=== PATIENT | male | born 1975 | race Caucasian/White ===

== ENCOUNTER 2016-11-26 22:37 | Emergency (ER) | payer BC, OTHER ==
[2016-11-26 22:52] VITALS: BP 133/78; PULSE 95; RESP 18; TEMP 98.1
--- NOTE | 2016-11-27 00:06 | ED ---
Extremity Problem HPI - General Chief complaint: Extremity Problem,Nontraumatic Stated complaint: left leg swelling Time Seen by Provider: 11/26/16 22:58 Source: patient, RN notes reviewed Mode of arrival: ambulatory Limitations: no limitations - History of Present Illness Initial comments: Patient is a 41-year-old male chief complaint of left lower calf swelling. Patient reports that he has occurred for the past 3 days. He states that his right Does not want. He denies any redness or heat from the calf. Patient states that he has no injury to cause the swelling. He states that he does stand on his feet all day at work. Patient denies any history of blood clots. Patient warts that he does have some pain behind the knee. He states that it initially started as pain management and he noticed a little red bump at the area. He reports that that has now resolved and he just has some swelling in the calf. Patient denies any recent fever, chills, shortness of breath, chest pain, back pain, abdominal pain, nausea vomiting, numbness or tingling, dysuria or hematuria, constipation or diarrhea, headaches or visual changes, or any other current symptoms - Related Data Home Medications Medication Instructions Recorded Confirmed Acetaminophen Tab [Tylenol Tab] 1,000 mg PO Q6HR PRN 11/26/16 11/26/16 Allergies Allergy/AdvReac Type Severity Reaction Status Date / Time latex Allergy Swelling Verified 11/26/16 23:39 Penicillins Allergy Rash/Hives Verified 11/26/16 23:39 Review of Systems ROS Statement: Those systems with pertinent positive or pertinent negative responses have been documented in the HPI. ROS Other: All systems not noted in ROS Statement are negative. Past Medical History Past Medical History: No Reported History History of Any Multi-Drug Resistant Organisms: None Reported Past Surgical History: Hernia Repair Past Psychological History: No Psychological Hx Reported Smoking Status: Current every day smoker Past Alcohol Use History: Rare Past Drug Use History: None Reported General Exam - General Exam Comments Initial Comments: Well-appearing 41-year-old male. He is not in any acute distress. Limitations: no limitations General appearance: alert, in no apparent distress Head exam: Present: atraumatic, normocephalic, normal inspection Eye exam: Present: normal appearance, PERRL, EOMI. Absent: scleral icterus, conjunctival injection, periorbital swelling ENT exam: Present: normal exam, mucous membranes moist Neck exam: Present: normal inspection. Absent: tenderness, meningismus, lymphadenopathy Respiratory exam: Present: normal lung sounds bilaterally. Absent: respiratory distress, wheezes, rales, rhonchi, stridor Cardiovascular Exam: Present: regular rate, normal rhythm, normal heart sounds. Absent: systolic murmur, diastolic murmur, rubs, gallop, clicks GI/Abdominal exam: Present: soft, normal bowel sounds. Absent: distended, tenderness, guarding, rebound, rigid Extremities exam: Present: normal inspection, full ROM, normal capillary refill. Absent: tenderness, pedal edema, joint swelling, calf tenderness Left Knee exam: Present: normal inspection, full ROM Lower Leg exam: Present: normal inspection, swelling (Patient is diffuse swelling over the calf. No evidence of erythema or heat from the leg.) Ankle exam: Present: normal inspection, full ROM Foot/Toe exam: Present: normal inspection, full ROM Neurovascular tendon exam: Present: no vascular compromise Gait: observed and normal Back exam: Present: normal inspection Neurological exam: Present: alert, oriented X3, CN II-XII intact Psychiatric exam: Present: normal affect, normal mood Skin exam: Present: warm, dry, intact, normal color. Absent: rash Course Vital Signs 11/26/16 22:49 Temperature 98.1 F Pulse Rate 95 Respiratory 18 Rate Blood Pressure 133/78 O2 Sat by Pulse 97 Oximetry Medical Decision Making - Medical Decision Making Patient is a 41-year-old male with 3 days of left lower calf swelling. Patient denies any erythema over the area. Denies any blood clots. He was significant swelling compared to the right leg ultrasound was obtained. Also x-ray of tib- fib was obtained. Ultrasound is negative for any acute process besides evidence of complex cystic process now the knee. I discussed with the patient as is a Lorenzo's cyst and that he needs to elevate his leg. Is likely that the Lorenzo's cyst ruptured and caused some dependent edema over the leg. Patient will be given Branden wrap and instructed to wear that as well as compression stockings whenever ambulating. I discussed return parameters and the patient needs to follow-up with orthopedic physician if he is still concerned. X-ray of tib-fib. It is negative for any acute process. Patient understands the treatment plan will comply. Return parameters were discussed. - Radiology Data Radiology results: report reviewed Complex masslike collection in the popliteal fossa raising possibility of a glycated popliteal cyst. Clinical correlation recommended. Disposition Clinical Impression: Popliteal cyst Disposition: HOME SELF-CARE Condition: Good Instructions: Bakers Cyst (ED) Additional Instructions: Patient denies to take Motrin Tylenol for pain. Follow-up with orthopedic symptoms continue to persist. Make sure the keep it elevated and apply the Branden wrap whenever working. Return to emergency department if any alarming signs or symptoms occur. Referrals: Christiano Dumont MD [Medical Doctor] - 1-2 days Time of Disposition: 00:39
--- NOTE | 2016-11-27 00:34 | US ---
Lower Extremity Venous Ultrasound - Left lower extremity duplex venous ultrasound Comparison: None available Findings: Normal venous flow, augmentation and compressibility of the common femoral, superficial femoral and popliteal veins. Normal venous flow signal in the imaged proximal profunda femoris vein. Normal venous flow and augmentation of the imaged deep calf veins. Popliteal fossa: There is complex elongated masslike collection measuring 4.3 x 0.9 x 4.5 cm in the popliteal fossa. IMPRESSION: No ultrasonographic evidence of deep venous thrombosis. Complex masslike collection in the popliteal fossa raising possibility of collocated popliteal cyst. Clinical correlation recommended.
--- NOTE | 2016-11-27 00:37 | XR ---
EXAM: XR Left Tibia and Fibula, 2 Views. CLINICAL HISTORY: Reason: Pain TECHNIQUE: Frontal and lateral views of the left tibia and fibula. COMPARISON: No relevant prior studies available. FINDINGS: Bones/joints: No evidence of fracture, dislocation or bony erosion. Soft tissues: Unremarkable. IMPRESSION: Significant bony abnormalities.
== END 2016-11-27 00:54 | disposition home or self-care (01) ==
LOC: EC 22:37
DX: M71.22 Synovial cyst of popliteal space [Baker], left knee (principal); F17.200 Nicotine dependence, unspecified, uncomplicated; Z91.040 Latex allergy status; Z88.0 Allergy status to penicillin
CPT/HCPCS: 99284

== ENCOUNTER 2025-01-01 11:03 | Emergency (ER) | payer BC ==
[2025-01-01 11:07] VITALS: TEMP 97.9
[2025-01-01 11:49] LABS: Basophils # (A) 0.07 10*3/uL (0.00-0.10); Basophils % (A) 0.8 %; Eosinophils # (A) 0.13 10*3/uL (0.04-0.35); Eosinophils % (A) 1.6 %; HCT 48.8 % (39.6-50.0); HGB 17.3 g/dL (13.0-17.0); Lymphocytes # (A) 1.69 10*3/uL (0.90-5.00); Lymphocytes % (A) 20.4 %; MCH 32.5 pg (27.0-32.0); MCHC 35.5 g/dL (32.0-37.0); MCV 91.6 fL (80.0-97.0); Mean Platelet Volume 11.4 fL (9.5-12.2); Monocytes # (A) 0.63 10*3/uL (0.20-1.00); Monocytes % (A) 7.6 %; Neutrophils # (A) 5.72 10*3/uL (1.80-7.70); Neutrophils % (A) 69.2 %; Platelet Count 222 10*3/uL (140-440); RBC 5.33 10*6/uL (4.40-5.60); RDW 12.7 % (11.5-14.5); WBC 8.27 10*3/uL (4.50-10.00)
--- NOTE | 2025-01-01 11:57 | ED ---
General Adult HPI - General Chief complaint: Dizziness Stated complaint: Dizziness/Vision Issue Time Seen by Provider: 01/01/25 11:30 Source: patient, RN notes reviewed, old records reviewed Mode of arrival: ambulatory Limitations: no limitations - History of Present Illness Initial comments: 49-year-old male presenting with dizziness, blurred vision over the past 4 days. Patient denies central chest pain. Denies focal numbness or weakness. Patient noted to be hypertensive in triage and does not have a known prior history of hypertension. Not currently on any daily medication. No vomiting. No fever. - Related Data Home Medications Medication Instructions Recorded Confirmed Acetaminophen Tab [Tylenol Tab] 1,000 mg PO Q6HR PRN 11/26/16 11/26/16 Allergies Allergy/AdvReac Type Severity Reaction Status Date / Time latex Allergy Swelling Verified 01/01/25 11:06 Penicillins Allergy Rash/Hives Verified 01/01/25 11:06 Review of Systems ROS Statement: Those systems with pertinent positive or pertinent negative responses have been documented in the HPI. ROS Other: All systems not noted in ROS Statement are negative. Past Medical History Past Medical History: No Reported History History of Any Multi-Drug Resistant Organisms: None Reported Past Surgical History: Hernia Repair Past Psychological History: No Psychological Hx Reported Smoking Status: Current every day smoker Past Alcohol Use History: Rare Past Drug Use History: None Reported General Exam Limitations: no limitations General appearance: alert, in no apparent distress Head exam: Present: atraumatic, normocephalic Eye exam: Present: normal appearance, PERRL ENT exam: Present: normal exam Neck exam: Present: normal inspection. Absent: tenderness, meningismus Respiratory exam: Present: normal lung sounds bilaterally. Absent: respiratory distress, wheezes Cardiovascular Exam: Present: regular rate, normal rhythm GI/Abdominal exam: Present: soft. Absent: distended, tenderness, guarding Extremities exam: Present: normal inspection Neurological exam: Present: alert, oriented X3, CN II-XII intact, other (No ataxia, normal finger-nose, normal [id number] bilaterally). Absent: motor sensory deficit Psychiatric exam: Present: normal affect, normal mood Skin exam: Present: warm, dry, intact Course Vital Signs 01/01/25 01/01/25 11:05 13:16 Temperature 97.9 F Pulse Rate 83 78 Respiratory 20 16 Rate Blood Pressure 185/104 169/99 O2 Sat by Pulse 95 95 Oximetry Medical Decision Making - Medical Decision Making Was pt. sent in by a medical professional or institution ([facility]AR[facility] Schaefer, MULTIPLE PUNCH PRESS OPERATOR, urgent care, hospital, or senior living...) When possible be specific @ -No Did you speak to anyone other than the patient for history (EMS, parent, family, police, friend...)? What history was obtained from this source @ -No Did you review nursing and triage notes (agree or disagree)? Why? @ -I reviewed and agree with nursing and triage notes Were old charts reviewed (outside hosp., previous admission, EMS record, old EKG, old radiological studies, urgent care reports/EKG's, senior living records)? Report findings @ -No old charts were reviewed Differential Dizziness: Benign paroxysmal positional Vertigo, Meniere's disease, otitis media, acoustic neuroma, vertebrobasilar insufficiency, cerebellar stroke, encephalitis, hypovolemic, arrhythmia, coronary artery syndrome, anemia, this is not meant to be an all-inclusive list EKG interpreted by me (3pts min.). @Sinus rhythm rate of 78, NC interval 159, QRS duration 101, QTc 385 X-rays interpreted by me (1pt min.). @ -Chest x-ray negative for acute cardiopulmonary CT interpreted by me (1pt min.). @ -None done U/S interpreted by me (1pt. minCT brain and CT angiogram negative for acute processdone] What testing was considered but not performed or refused? (CT, X-rays, U/S, labs)? Why? @ -None What meds were considered but not given or refused? Why? @ -None Did you discuss the management of the patient with other professionals (professionals i.e. SCARLET Schaefer, MULTIPLE PUNCH PRESS OPERATOR, lab, RT, psych nurse, farmworker animal, desktop support technician, teacher, command and control officer, outpatient case manager)? Give summary @ -No Was smoking cessation discussed for >3mins.? @ -No Was critical care preformed (if so, how long)? @ -No Were there social determinants of health that impacted care today? How? (Homelessness, low income, unemployed, alcoholism, drug addiction, fu sportation, low edu. Level, literacy, decrease access to med. care, fci, rehab)? @ -No Was there de-escalation of care discussed even if they declined (Discuss DNR or withdrawal of care, Hospice)? DNR status @ -No What co-morbidities impacted this encounter? (DM, HTN, Smoking, COPD, CAD, Cancer, CVA, ARF, Chemo, Hep., AIDS, mental health diagnosis, sleep apnea, morbid obesity)? @ -Patient does not regularly follow with a physician Was patient admitted / discharged? Hospital course, mention meds given and route, prescriptions, significant lab abnormalities, going to OR and other pertinent info. @49-year-old male with dizziness, found to be hypertensive. Workup is including CT CT angiography, chest x-ray, laboratory testing, EKG. Patient is noted to have an elevated blood sugar, likely diagnosis of diabetes with a greater than 200 sugar. His initial blood pressure is elevated although this is improved in the emergency department. The remainder of his workup is unremarkable. We d iscussed possibility of starting medications including diabetic and antihypertensive medication but the patient states that he does consume a large amount of energy drinks and Mountain Dew and he would like to first attempt to change his diet. He will avoid sugary drinks. He will eat healthy foods and begin to exercise more. He is given referral to primary care for further evaluation and treatment. He will also keep a journal of his blood pressure. Undiagnosed new problem with uncertain prognosis? @ -No Drug Therapy requiring intensive monitoring for toxicity (Heparin, Nitro, Insulin, Cardizem)? @ -No Were any procedures done? @ -No Diagnosis/symptom? @ -[Hypertension, hyperglycemia Acute, or Chronic, or Acute on Chronic? @ -Acute Uncomplicated (without systemic symptoms) or Complicated (systemic symptoms)? @ -Default Side effects of treatment? @ -No Exacerbation, Progression, or Severe Exacerbation? @ -No Poses a threat to life or bodily function? How? (Chest pain, [place], MT, pneumonia, PE, COPD, DKA, ARF, appy, cholecystitis, CVA, Diverticulitis, Homicidal, Suicidal, threat to staff... and all critical care pts) @ -Low risk at this time - Lab Data Result diagrams: 01/01/25 11:44 01/01/25 11:44 Lab Results 01/01/25 01/01/25 01/01/25 Range/Units 11:44 11:44 11:44 WBC 8.27 (4.50-10.00) 10*3/uL RBC 5.33 (4.40-5.60) 10*6/uL Hgb 17.3 H (13.0-17.0) g/dL Hct 48.8 (39.6-50.0) % MCV 91.6 (80.0-97.0) fL MCH 32.5 H (27.0-32.0) pg MCHC 35.5 (32.0-37.0) g/dL Plt Count 222 (140-440) 10*3/uL MPV 11.4 (9.5-12.2) fL Immature Gran % (Auto) 0.4 % Neutrophils % 69.2 % Lymphocytes % 20.4 % Monocytes % 7.6 % Eosinophils % 1.6 % Basophils % 0.8 % Immature Gran # 0.03 (0.00-0.04) 10*3/uL Neutrophils # 5.72 (1.80-7.70) 10*3/uL Lymphocytes # 1.69 (0.90-5.00) 10*3/uL Monocytes # 0.63 (0.20-1.00) 10*3/uL Eosinophils # 0.13 (0.04-0.35) 10*3/uL Basophils # 0.07 (0.00-0.10) 10*3/uL PT 10.9 (10.0-12.5) sec INR 1.0 (<1.2) APTT 25.2 (22.0-30.0) sec Sodium 135 L (137-145) mmol/L Potassium 4.0 (3.5-5.1) mmol/L Chloride 101 (98-107) mmol/L Carbon Dioxide 25 (22-30) mmol/L Anion Gap 9 mmol/L BUN 9 (9-20) mg/dL Creatinine 0.84 (0.66-1.25) mg/dL Est GFR (CKD-EPI)AfAm >90 (>60 ml/min/1.73 sqM) Est GFR (CKD-EPI)NonAf >90 (>60 ml/min/1.73 sqM) Glucose 211 H (74-99) mg/dL Plasma Lactic Acid Oziel (0.7-2.0) mmol/L Calcium 9.2 (8.4-10.2) mg/dL Magnesium 2.0 (1.6-2.3) mg/dL Total Bilirubin 0.7 (0.2-1.3) mg/dL AST 40 (17-59) U/L ALT 47 (4-49) U/L Alkaline Phosphatase 87 (38-126) U/L Troponin I (0.000-0.034) ng/mL Total Protein 6.9 (6.3-8.2) g/dL Albumin 4.2 (3.5-5.0) g/dL 01/01/25 01/01/25 Range/Units 11:44 11:44 WBC (4.50-10.00) 10*3/uL RBC (4.40-5.60) 10*6/uL Hgb (13.0-17.0) g/dL Hct (39.6-50.0) % MCV (80.0-97.0) fL MCH (27.0-32.0) pg MCHC (32.0-37.0) g/dL Plt Count (140-440) 10*3/uL MPV (9.5-12.2) fL Immature Gran % (Auto) % Neutrophils % % Lymphocytes % % Monocytes % % Eosinophils % % Basophils % % Immature Gran # (0.00-0.04) 10*3/uL Neutrophils # (1.80-7.70) 10*3/uL Lymphocytes # (0.90-5.00) 10*3/uL Monocytes # (0.20-1.00) 10*3/uL Eosinophils # (0.04-0.35) 10*3/uL Basophils # (0.00-0.10) 10*3/uL PT (10.0-12.5) sec INR (<1.2) APTT (22.0-30.0) sec Sodium (137-145) mmol/L Potassium (3.5-5.1) mmol/L Chloride (98-107) mmol/L Carbon Dioxide (22-30) mmol/L Anion Gap mmol/L BUN (9-20) mg/dL Creatinine (0.66-1.25) mg/dL Est GFR (CKD-EPI)AfAm (>60 ml/min/1.73 sqM) Est GFR (CKD-EPI)NonAf (>60 ml/min/1.73 sqM) Glucose (74-99) mg/dL Plasma Lactic Acid Oziel 1.2 (0.7-2.0) mmol/L Calcium (8.4-10.2) mg/dL Magnesium (1.6-2.3) mg/dL Total Bilirubin (0.2-1.3) mg/dL AST (17-59) U/L ALT (4-49) U/L Alkaline Phosphatase (38-126) U/L Troponin I <0.012 (0.000-0.034) ng/mL Total Protein (6.3-8.2) g/dL Albumin (3.5-5.0) g/dL Disposition Clinical Impression: Hypertension, Hyperglycemia Disposition: HOME SELF-CARE Condition: Fair Instructions (If sedation given, give patient instructions): Hypertension (ED), Nondiabetic Hyperglycemia (ED), Diabetes and Exercise (ED) Is patient prescribed a controlled substance at d/c from ED?: No Referrals: None,Stated [Primary Care Provider] - 1-2 days Yuval Ashraf, [REFERRING] - 1-2 days Everardo Cummins MD [STAFF PHYSICIAN] - 1-2 days Time of Disposition: 13:11
[2025-01-01 11:58] LABS: Partial Thromboplastin Time 25.2 sec (22.0-30.0); Prothrombin Time 10.9 sec (10.0-12.5)
[2025-01-01 12:02] LABS: ALT 47 U/L (4-49); AST 40 U/L (17-59); African American GFR (CKD) >90 (>60 ml/min/1.73 sqM); Albumin 4.2 g/dL (3.5-5.0); Alkaline Phosphatase 87 U/L (38-126); Anion Gap 9 mmol/L; Blood Urea Nitrogen 9 mg/dL (9-20); Calcium 9.2 mg/dL (8.4-10.2); Carbon Dioxide 25 mmol/L (22-30); Chloride 101 mmol/L (98-107); Glucose 211 mg/dL (74-99); Non-African American GFR(CKD) >90 (>60 ml/min/1.73 sqM); Sodium 135 mmol/L (137-145); Total Bilirubin 0.7 mg/dL (0.2-1.3); Total Protein 6.9 g/dL (6.3-8.2)
[2025-01-01] MEDS: SODIUM CHLORIDE 0.9% 1,000 ML IV ONE (12:06)
--- NOTE | 2025-01-01 12:29 | CT ---
EXAMINATION TYPE: CT brain wo con DATE OF EXAM: 01/01/2025 12:08 PM COMPARISON: None. CLINICAL INDICATION: Male, 49 years old with history of weakness/dizzy, Weakness, dizzy. Recent synco pal episode. TECHNIQUE: Brain: Axial CT images of the brain were obtained with coronal and sagittal reformats created and rev iewed. Contrast used: None. Oral contrast used: None. CT DLP: 1206.6 mGycm, Automated exposure control for dose reduction was used. FINDINGS: Brain: Extra-axial spaces: No abnormal extra-axial fluid collections. Ventricular system: Within normal limits Cerebral parenchyma: No acute intraparenchymal hemorrhage or mass effect. The ventura-white junction is well differentiated. Cerebellum: Unremarkable. Mass effect: No evidence of midline shift. Intracranial vasculature: unremarkable Soft tissues: Normal. Calvarium/osseous structures: No depressed skull fracture. Paranasal sinuses and mastoid air cells: Mild scattered paranasal sinus disease. Visualized orbits: Orbital contents are intact. IMPRESSION: No acute intracranial process. [facility], , 01/01/2025 12:27 PM
--- NOTE | 2025-01-01 12:36 | XR ---
EXAMINATION TYPE: XR chest 2V DATE OF EXAM: 01/01/2025 12:29 PM COMPARISON: Chest radiographs from 09/13/2015 TECHNIQUE: XR chest 2V Frontal and lateral views of the chest. CLINICAL INDICATION:Male, 49 years old with history of Weakness/dizzy; FINDINGS: Lungs/Pleura: There is no evidence of pleural effusion, focal consolidation, or pneumothorax. Pulmonary vascularity: Unremarkable. Heart/mediastinum: Cardiomediastinal silhouette is unremarkable. Musculoskeletal: No acute osseous pathology. IMPRESSION: No acute cardiopulmonary disease/process. [facility], , 01/01/2025 12:34 PM
--- NOTE | 2025-01-01 12:40 | CT ---
EXAMINATION TYPE: CT angio head neck DATE OF EXAM: 01/01/2025 12:28 PM COMPARISON: CT head same day. CLINICAL INDICATION: Male, 49 years old with history of dizzy/HTN; PHH, Weakness, dizzy. Recent synco pal episode. TECHNIQUE: Axially acquired helical CT angiogram of the head and neck was obtained with contrast. Axi al images are supplemented with 3D reconstructions and MIP images which were post-processed at an in dependent workstation. NASCET criteria used. Contrast used:65 ml mL of Isovue 370 with IV Contrast, Oral contrast used: None. CT DLP: 726.8 mGycm, Automated exposure control for dose reduction was used. FINDINGS: CTA HEAD: No evidence of acute intracranial hemorrhage, mass effect, or midline shift. The ventricles, sulci, a nd cisterns are unremarkable. Vertebral arteries: The vertebral arteries are patent. Vertebral artery dominance: Codominant Basilar artery: The basilar artery is intact. The basilar artery bifurcation is normal. Internal Carotid arteries: The cervical, petrous, cavernous and supraclinoid segments are normal. DEL: Patent with no evidence of aneurysm. ACOM: Present without evidence of aneurysm. MCA: Patent with no evidence of aneurysm. HAT IRONER: Patent with no evidence of aneurysm. PCOM: Hypoplastic bilaterally. Dural sinuses: Patent. CTA NECK: Right Carotid System: The common carotid artery and external carotid artery are patent. The carotid bifurcation demonstrate s no evidence of hemodynamically significant stenosis. The remaining portions of the internal carotid artery demonstrate normal size without significant narrowing. Left Carotid System: The common carotid artery and external carotid artery are patent. The carotid bifurcation demonstrate s no evidence of hemodynamically significant stenosis. The remaining portions of the internal carotid artery demonstrate normal size without significant narrowing. Vertebral arteries are patent without evidence hemodynamically significant stenosis. There is a three-vessel aortic arch. The origins of the great vessels are patent. No evidence of hemo dynamically significant stenosis. Upper thorax: Mild to moderate centrilobular emphysema changes of the lungs. IMPRESSION: 1. No evidence of dissection of the cervical internal carotid arteries or vertebral arteries. 2. No any evidence of significant stenosis at the carotid bifurcations. 3. No evidence of intracranial high-grade stenosis or intracranial aneurysm. [facility], , 01/01/2025 12:37 PM
[2025-01-01 13:17] VITALS: BP 169/99; PULSE 78; RESP 16
== END 2025-01-01 13:17 | disposition home or self-care (01) ==
LOC: EC 11:03
DX: I10 Essential (primary) hypertension (principal); R73.9 Hyperglycemia, unspecified; F17.200 Nicotine dependence, unspecified, uncomplicated; Z91.040 Latex allergy status; Z88.0 Allergy status to penicillin
CPT/HCPCS: 36415; 93005; 80053; 83605; 83735; 84484; 85025; 85610; 85730; 71046; 70496; 70450; 70498; 99284; 96360; Q9967